=== PATIENT | male | born 1935 ===

== ENCOUNTER 2022-09-05 06:36 | Day surgery (SDC) | payer OTHER ==
[~2022-09-05] VITALS: Ht 172.7 cm; Wt 77.1 kg
[~2022-09-05 06:36] MED LIST: ATORVASTATIN CA10 MG PO; COZAAR100 MG PO; METFORMIN HCL500 M3 PO; NABUMETONE500 MG PO
== END 2022-09-05 18:25 | disposition home or self-care (01) ==
LOC: CIR.AMB 06:36
PROVIDERS: ATTEND Orthopaedic Surgery Hand Surgery
DX: M19.021 Primary osteoarthritis, right elbow (principal); Z20.822 Contact with and (suspected) exposure to COVID-19; I10 Essential (primary) hypertension; E11.9 Type 2 diabetes mellitus without complications; E78.00 Pure hypercholesterolemia, unspecified
CPT/HCPCS: 24363; C1776

== ENCOUNTER 2022-09-05 20:21 | Emergency (ER) | payer OTHER ==
[~2022-09-05] VITALS: Ht 172.7 cm; Wt 79.4 kg
== END 2022-09-05 21:45 | disposition home or self-care (01) ==
LOC: ER 20:21
DX: M96.830 Postprocedural hemorrhage of a musculoskeletal structure following a musculoskeletal system procedure (principal); E78.00 Pure hypercholesterolemia, unspecified; E11.9 Type 2 diabetes mellitus without complications; Z79.84 Long term (current) use of oral hypoglycemic drugs; I10 Essential (primary) hypertension; Z96.621 Presence of right artificial elbow joint